=== PATIENT | female | born 1975 | race Caucasian/White ===

== ENCOUNTER 2018-04-05 01:26 | Inpatient (IN) ==
--- NOTE | 2018-04-05 02:51 | ED ---
HPI General Chief Complaint: Psychiatric Symptoms Stated Complaint: psych eval/transfer Time Seen by Provider: 04/05/18 01:46 Source: patient Mode of arrival: ambulatory Limitations: no limitations History of Present Illness HPI Narrative: This is a 43-year-old white female who is a transfer from [facility] under a Phillips act. The patient had been in the ER for nearly 3 days before being transferred here to [place]. Patient was concerned that her Phillips act would be lifted and that she would be discharged. Patient states that she still feels suicidal and does not feel comfortable going home. Patient reportedly had just moved to the area from [place]. Patient states that she just ran out of her Suboxone. She had taken her last dose prior to going to the ER. She has a history of substance abuse after having a head injury as a child and allegedly had been on oxycodone 80 mg twice daily for chronic headaches. Patient reportedly now has been off drugs for several years. She had been using heroin in the past. Past medical history: Hepatitis C, TBI, substance abuse and depression. History of prior psychiatric admissions and suicide attempts in the past. Past surgical history: Right wrist fracture with ORIF, tonsillectomy, tubal ligation, Social history: Related Data Home Medications Medication Instructions Recorded Confirmed buprenorphine HCl 8 mg SUBLINGUAL BID PRN 04/05/18 04/05/18 clonazepam 0.5 mg PO TID PRN 04/05/18 04/05/18 sertraline [Zoloft] 50 mg PO DAILY 04/05/18 04/05/18 Allergies Allergy/AdvReac Type Severity Reaction Status Date / Time epinephrine Allergy Unknown Anxiety Verified 04/05/18 01:45 Review of Systems ROS: all other systems reviewed are negative PMFSH History History Provided By: Patient and Medical Record Medical History Medical History Depression (Acute) Traumatic brain injury (Acute) Social History Social History Substance History: Past History Smoking Status: Current every day smoker Tobacco Type: Cigarettes How Often Do You Have a Drink Containing Alcohol: Monthly or less Recent Travel in [facility] within the Last 8 Weeks: No Recent Out of Country Travel within the Last 8 Weeks: No Course Initial Documented Vital Signs Temperature 98.3 F 04/05/18 01:53 Pulse Rate 97 H 04/05/18 01:53 Respiratory Rate 16 04/05/18 01:53 Blood Pressure 147/91 H 04/05/18 01:53 Pulse Oximetry 97 04/05/18 01:53 Last Documented Vital Signs Temperature 98.3 F 04/05/18 01:53 Pulse Rate 97 H 04/05/18 01:53 Respiratory Rate 16 04/05/18 01:53 Blood Pressure 147/91 H 04/05/18 01:53 Pulse Oximetry 97 04/05/18 01:53 Medical Decision Making MDM Narrative Medical decision making narrative: I reviewed the patient's medical record. The patient has been medically cleared by [facility]. Medical Screen Exam Complete: Yes Emergency Medical Condition: Yes Differential Diagnosis Differential Diagnosis: MDM: High Differential diagnoses: Schizophrenia, schizoaffective disorder, bipolar, anxiety, depression, adjustment reaction, mood disorder NOS, ODD, depressive disorder NOS, dementia, dementia with agitation, psychosis NOS, substance induced mood disorder , infection,electrolyte abnormality, malingering. Mental health screening discussed with the patient. Psychiatric screen ordered. Discharge Plan Discharge Disposition Patient Disposition: 30 Still Patient Discharge Condition Condition: Stable Physicians Team ED Provider: Yue Esposito ED Midlevel Provider: Elton Johns Primary Care Provider: Primary Care Shiloh Jacques Rxs /Orders / Referrals /Forms Prescriptions: No Action clonazepam 0.5 mg Tablet 0.5 mg PO TID PRN (Reason: Anxiety) RF: 0 buprenorphine HCl 8 mg Tablet, Sublingual 8 mg Sublingual BID PRN (Reason: Pain, Severe) RF: 0 sertraline [Zoloft] 50 mg Tablet 50 mg PO DAILY RF: 0 Status ED Status: Medically Cleared
[2018-04-05] MEDS ORDERED: Aluminum/Magnesium/Simethacone Susp 30 ML UDC PO PRN (16:55)
[2018-04-05] MEDS ORDERED: Melatonin 5 MG Tablet PO PRN (16:55)
[2018-04-05] MEDS ORDERED: LORazepam 1 MG Tablet PO PRN (16:57)
[2018-04-05] MEDS ORDERED: Haloperidol Inj 5 MG/ML Ampul IV.PUSH PRN (16:57)
[2018-04-06] MEDS: Senna/Docusate Sodium 8.6/50 MG Tablet PO SCH ×3 (01:20→20:15)
[2018-04-06] MEDS: Multivitamin/Minerals Therapeutic Tablet PO SCH (08:31)
[2018-04-06] MEDS: Folic Acid 1 MG Tablet PO SCH (08:31)
[2018-04-06 08:35] LABS: Baso # (Auto) 0.1 th/mm3 (0.0-0.2); Baso % (Auto) 1.1 % (0.0-2.0); Eos # (Auto) 0.1 th/mm3 (0.0-0.4); Eos % (Auto) 2.2 % (0.0-4.0); Hematocrit 40.6 % (35.0-46.0); Hemoglobin 13.3 gm/dL (11.6-15.3); Lymph # (Auto) 1.8 th/mm3 (1.0-4.8); Lymph % (Auto) 27.6 % (9.0-44.0); Mean Corpuscular HGB Conc 32.8 % (32.0-36.0); Mean Corpuscular Hemoglobin 26.7 pg (27.0-34.0); Mean Corpuscular Volume 81.3 fL (80.0-100.0); Mean Platelet Volume 7.1 fL (7.0-11.0); Mono # (Auto) 0.5 th/mm3 (0.0-0.9); Mono % (Auto) 6.9 % (0.0-8.0); Neut # (Auto) 4.1 th/mm3 (1.8-7.7); Neut % (Auto) 62.2 % (16.0-70.0); Platelet Count 253 th/mm3 (150-450); Red Cell Distribution Width 17.5 % (11.6-17.2); White Blood Count 6.6 th/mm3 (4.0-11.0)
[2018-04-06 09:05] LABS: Albumin 3.7 g/dL (3.4-5.0); Anion Gap 11 meq/L (5-15); Aspartate Aminotransferase 70 U/L (15-37); Blood Urea Nitrogen 14 mg/dL (7-18); Calcium 8.6 mg/dL (8.5-10.1); Carbon Dioxide 22.7 meq/L (21.0-32.0); Chloride 103 meq/L (98-107); Glomerular Filtration Rate 74 mL/min (>89); Glucose,Random 185 mg/dL (74-106); Potassium 4.1 meq/L (3.5-5.1); Sodium 137 meq/L (136-145)
[2018-04-06 09:07] LABS: Alanine Aminotransferase 73 U/L (10-53); Cholesterol 216 mg/dL (120-200); Triglycerides 99 mg/dL (42-150)
[2018-04-06 09:31] LABS: Alkaline Phosphatase 82 U/L (45-117); Chol/HDL Ratio 3.08 Ratio; HDL Cholesterol 70.1 mg/dL (40.0-60.0); LDL Cholesterol,Calculated 126 mg/dL (0-99); Total Protein 7.8 g/dL (6.4-8.2)
[2018-04-06 09:41] LABS: Hemoglobin A1c 5.4 % (4.3-6.0)
[2018-04-06] MEDS ORDERED: Loperamide 2 MG Capsule PO PRN (10:27)
[2018-04-06] MEDS: Sertraline 100 MG Tablet PO SCH (10:52)
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
[2018-04-06] MEDS: Baclofen 10 MG Tablet PO SCH ×2 (12:38→17:01)
[2018-04-07] MEDS: Baclofen 10 MG Tablet PO SCH (08:42)
[2018-04-07] MEDS: Sertraline 100 MG Tablet PO SCH (08:42)
[2018-04-07] MEDS: Folic Acid 1 MG Tablet PO SCH (08:46)
[2018-04-07] MEDS: Multivitamin/Minerals Therapeutic Tablet PO SCH (08:46)
[2018-04-07] MEDS: Senna/Docusate Sodium 8.6/50 MG Tablet PO SCH ×2 (08:46→20:35)
--- NOTE | 2018-04-07 10:48 | P.PNPSY ---
Subjective Remarks: Patient seen and examined with nurse. Chart reviewed. Case discussed with nursing staff. No behavioral issues noted overnight. CIWA score is reportedly minimal. On my examination today, patient reports that she slept well overnight. Mood is reportedly "pretty good." The patient does continue to endorse suicidal ideation as before but has no reported urge to hurt self on the inpatient unit. No homicidal ideation. No psychotic material. Denies side effects from medications. Complains of feeling "shaky, achy, sweaty" in the setting of reported opiate withdrawal. Agreeable to titration of baclofen for management of withdrawal symptoms. No other physical complaints. Vital Signs Temp Pulse Resp BP Pulse Ox 04/07/18 06:00 98.2 F 79 134/94 H 04/06/18 17:35 98.7 F 84 17 124/85 04/06/18 14:00 98.3 F 85 17 108/55 L 95 Intake and Output 04/06/18 04/07/18 04/07/18 22:59 06:59 14:59 Other: Weight 52.2 kg Laboratory Results - last 24 hr 04/06/18 08:12 Free T4 1.12 Labs reviewed. Free T4 within normal limits. Review of Systems All other systems reviewed negative except as stated in HPI Mental Status Examination Appearance: Appropriate Consciousness: Alert Orientation: x4 Motor Activity: Other (No motor abnormalities noted.) Speech: Unremarkable Language: Adequate Fund of Knowledge: Adequate Attention and Concentration: Adequate Memory: Unremarkable (Grossly intact on clinical exam) Mood: Other ("Pretty good") Affect: Blunt Thought Process & Associations: Intact, Logical, Linear Thought Content: Appropriate Hallucination Type: None Delusion Type: None Suicidal Ideation: Yes Suicidal Plan: Yes (Walk into traffic) Suicidal Intention: No (No reported urge to hurt self on an inpatient unit) Homicidal Ideation: No Homicidal Plan: No Homicidal Intention: No Insight: Fair Judgment: Impulsive Assessment and Plan - Assessment (1) Adjustment disorder with mixed disturbance of emotions and conduct Code(s): F43.25 - Adjustment disorder with mixed disturbance of emotions and conduct Status: Acute (2) Polysubstance abuse Code(s): F19.10 - Other psychoactive substance abuse, uncomplicated Status: Acute - Plan Plan: Titrate baclofen to 20 mg 3 times daily for management of reported withdrawal symptoms. Continue Zoloft as ordered. Continue to monitor on the inpatient unit. Continue other medications and care as ordered. Justification for Continued Inpatient Stay: Monitoring for impairment in safety. Discharge Planning: Pending psychiatric stabilization Request Healthcare Surrogate/Guardian Advocate?: No
[2018-04-07] MEDS ORDERED: Baclofen 10 MG Tablet PO ONE (11:00)
[2018-04-08] MEDS: Senna/Docusate Sodium 8.6/50 MG Tablet PO SCH ×2 (08:14→20:55)
[2018-04-08] MEDS: Multivitamin/Minerals Therapeutic Tablet PO SCH (08:14)
[2018-04-08] MEDS: Sertraline 100 MG Tablet PO SCH (08:14)
[2018-04-08] MEDS: Folic Acid 1 MG Tablet PO SCH (08:14)
--- NOTE | 2018-04-08 10:01 | P.TTN ---
- Patient Problems Problems: 1. Discharge planning 2. Medication compliance 3. Knowledge deficit 4. Lack of coping skills - Progress Toward Goals Provider Present: Dr. Mary Ruano (Dr. Ruano is titrating medications, patient needs to remain for further stabilization.) Psychiatric Counselors Present: Santi Villanueva Jr., [facility] (Counselor will meet with the patient today to discuss a safe discharge plan.) Group Spec/RT/OT/FERNANDEZ Present: DEYSI De La Cruz (Patient attends select groups.) - Documentation Teaching Recipient: Patient
--- NOTE | 2018-04-08 11:16 | P.PNPSY ---
Subjective Remarks: Patient seen and examined with nurse. Chart reviewed. Case discussed with nursing staff who reports patient had a fine day yesterday but then became upset when evening staff tried to take away her hoodie. Case discussed in treatment team. On my examination today, the patient says that she is feeling "emotional." She reports that she is doing well from an opiate withdrawal standpoint. She denies SI. She notes that Lamictal has been very helpful in the past for mood stabilization, and she thinks that the only reason she came off of this agent was because she went to prison and was off of it long enough to require re-titration, and so a different agent was selected instead. Denies side effects from medications. No physical complaints. Vital Signs Temp Pulse Resp BP Pulse Ox 04/08/18 10:00 98.2 F 91 H 18 123/74 98 04/08/18 04:00 98.1 F 69 18 143/87 H 100 04/08/18 00:00 98.6 F 72 20 120/74 99 04/07/18 20:00 98.6 F 72 18 118/84 99 04/07/18 17:48 98.6 F 89 18 147/87 H 98 04/07/18 14:40 98.6 F 79 16 117/84 99 Labs reviewed. No new labs. Review of Systems All other systems reviewed negative except as stated in HPI Mental Status Examination Appearance: Appropriate Consciousness: Alert Orientation: x4 Motor Activity: Other (No abnormal motor movements noted.) Speech: Unremarkable Language: Adequate Fund of Knowledge: Adequate Attention and Concentration: Adequate Memory: Unremarkable (Grossly intact on clinical exam) Mood: Other (Improving) Affect: Blunt Thought Process & Associations: Intact, Logical, Linear Thought Content: Appropriate Hallucination Type: None Delusion Type: None Suicidal Ideation: No Suicidal Plan: No Suicidal Intention: No Homicidal Ideation: No Homicidal Plan: No Homicidal Intention: No Insight: Fair Judgment: Impulsive Assessment and Plan - Assessment (1) Adjustment disorder with mixed disturbance of emotions and conduct Code(s): F43.25 - Adjustment disorder with mixed disturbance of emotions and conduct Status: Acute (2) Polysubstance abuse Code(s): F19.10 - Other psychoactive substance abuse, uncomplicated Status: Acute - Plan Plan: Add Lamictal 25 mg at bedtime for mood stabilization. Continue Zoloft as ordered. Continue medications for management of opiate and GABAergic withdrawal , although we may consider tapering baclofen starting tomorrow. Continue to monitor on the inpatient unit. Patient will be transferred to lower acuity unit as her behavior and level of function are more appropriate for that unit. Continue other care as ordered. Justification for Continued Inpatient Stay: Medication changes. Risk for decompensation and less restrictive environment. Discharge Planning: Pending psychiatric stabilization. Request Healthcare Surrogate/Guardian Advocate?: No
[2018-04-08] MEDS: lamoTRIgine 25 MG TABLET PO SCH (20:54)
[2018-04-09] MEDS: Senna/Docusate Sodium 8.6/50 MG Tablet PO SCH ×2 (08:55→21:44)
[2018-04-09] MEDS: Sertraline 100 MG Tablet PO SCH (08:55)
[2018-04-09] MEDS: Multivitamin/Minerals Therapeutic Tablet PO SCH (08:55)
[2018-04-09] MEDS: Folic Acid 1 MG Tablet PO SCH (08:55)
--- NOTE | 2018-04-09 11:24 | P.PNPSY ---
Subjective Remarks: Patient seen and examined with nurse. Chart reviewed. Case discussed with nursing staff who reports patient slept fairly well and has been denying suicidal ideation or audiovisual hallucinations. On my examination today, the patient reports that her mood is improving. She is more hopeful and optimistic about the future. She says that she has spoken with her mother and is now contemplating returning to [place] where she has access to more services including a Suboxone provider. She denies side effects from medications. No withdrawal symptoms, and the patient notes that she is "pleasantly surprised" with how well she feels from a withdrawal standpoint. No physical complaints. Vital Signs Temp Pulse Resp BP Pulse Ox 04/09/18 05:34 98.5 F 66 17 141/87 H 96 04/08/18 16:00 98.6 F 74 16 120/81 98 Intake and Output 04/08/18 04/09/18 04/09/18 22:59 06:59 14:59 Intake Total 360 / 360 Balance 360 / 360 Intake: Oral 360 / 360 Labs reviewed. No new labs. Review of Systems All other systems reviewed negative except as stated in HPI Mental Status Examination Appearance: Appropriate Consciousness: Alert Orientation: x4 Motor Activity: Normal gait, Other (No motoric abnormalities noted. No objective signs of opiate withdrawal noted.) Speech: Unremarkable Language: Adequate Fund of Knowledge: Adequate Attention and Concentration: Adequate Memory: Unremarkable (Grossly intact on clinical exam) Mood: Other (Mood continues to improve) Affect: Blunt (More full and reactive today) Thought Process & Associations: Intact, Logical, Linear Thought Content: Appropriate Hallucination Type: None Delusion Type: None Suicidal Ideation: No Homicidal Ideation: No Insight: Fair Judgment: Impulsive Mental Status Exam Remarks: No visible rash. Assessment and Plan - Assessment (1) Adjustment disorder with mixed disturbance of emotions and conduct Code(s): F43.25 - Adjustment disorder with mixed disturbance of emotions and conduct Status: Acute (2) Polysubstance abuse Code(s): F19.10 - Other psychoactive substance abuse, uncomplicated Status: Acute - Plan Plan: Taper baclofen to 10 mg 4 times a day with plans for further taper to discontinuation of his opiate withdrawal symptoms appear to be under good control. Continue Zoloft as ordered. Continue Lamictal as ordered. Patient appears to be tolerating addition of this medication well, and we discussed plan for slow titration. Continue to monitor on inpatient unit. Continue other care as ordered. Justification for Continued Inpatient Stay: Medication changes. High risk for decompensation and less restrictive environment. Discharge Planning: Possible plan for return to [place] with outpatient follow-up and chemical dependency services there. Case discussed with counselor who will continue to work with patient on discharge planning. Request Healthcare Surrogate/Guardian Advocate?: No
[2018-04-09] MEDS: Acetaminophen 325 MG Tablet PO PRN ×3 (15:33→21:07)
[2018-04-09] MEDS: lamoTRIgine 25 MG TABLET PO SCH (21:06)
[2018-04-10] MEDS: Multivitamin/Minerals Therapeutic Tablet PO SCH (08:38)
[2018-04-10] MEDS: Senna/Docusate Sodium 8.6/50 MG Tablet PO SCH (08:40)
[2018-04-10] MEDS: Folic Acid 1 MG Tablet PO SCH (08:40)
[2018-04-10] MEDS: Sertraline 100 MG Tablet PO SCH (08:40)
--- NOTE | 2018-04-10 10:04 | P.PNPSY ---
Subjective Remarks: Patient seen and examined with nurse. Chart reviewed. Case discussed with nursing staff. No behavioral issues noted. Case discussed with counselor, who is assisting patient with discharge planning. On my exam today, patient complains of some interval worsening of opioid withdrawal symptoms with tapering of Baclofen. She complains of frequent yawning and sweating. No diarrhea or nausea/vomiting reported. Mood is improved versus admission. No SI. No side effects from medications. No other physical complaints. Vital Signs Temp Pulse Resp BP Pulse Ox 04/10/18 05:47 98.1 F 69 16 136/86 99 04/09/18 22:07 16 04/09/18 17:21 98.6 F 82 15 126/82 97 Labs reviewed. Review of Systems All other systems reviewed negative except as stated in HPI Mental Status Examination Appearance: Appropriate Consciousness: Alert Orientation: x4 Motor Activity: Normal gait, Other (No abnormal motor movements noted. No lacrimation, no rhinorrhea, no evident piloerection, no other signs of opioid withdrawal.) Speech: Unremarkable Language: Adequate Fund of Knowledge: Adequate Attention and Concentration: Adequate Memory: Unremarkable (Grossly intact on clinical exam) Mood: Appropriate Affect: Appropriate Thought Process & Associations: Intact, Logical, Linear Thought Content: Appropriate Hallucination Type: None Delusion Type: None Suicidal Ideation: No Homicidal Ideation: No Insight: Adequate Judgment: Adequate Mental Status Exam Remarks: Again no visible rash. Assessment and Plan - Assessment (1) Adjustment disorder with mixed disturbance of emotions and conduct Code(s): F43.25 - Adjustment disorder with mixed disturbance of emotions and conduct Status: Acute (2) Polysubstance abuse Code(s): F19.10 - Other psychoactive substance abuse, uncomplicated Status: Acute - Plan Plan: Continue baclofen as ordered for now. Continue Zoloft and Lamictal as ordered. Continue other medications and care as ordered. Continue to monitor on the inpatient unit. Justification for Continued Inpatient Stay: Risk for decompensation in less restrictive environment. Discharge planning. Discharge Planning: Possible discharge next 1-2 days. Case discussed with counselor. Request Healthcare Surrogate/Guardian Advocate?: No
[2018-04-10] MEDS: lamoTRIgine 25 MG TABLET PO SCH (20:48)
[2018-04-11] MEDS: Senna/Docusate Sodium 8.6/50 MG Tablet PO SCH ×3 (01:57→20:50)
[2018-04-11] MEDS: Sertraline 100 MG Tablet PO SCH (08:38)
--- NOTE | 2018-04-11 12:07 | P.DSPSY ---
Psychiatry Discharge Summary Inpatient Psychiatric care?: Yes Advance Directives: No Mental Health Advance Directive: No Health Care Proxy: No - Admission Admission Date: April 05, 2018 17:04 - Admission Diagnosis (1) Adjustment disorder with mixed disturbance of emotions and conduct Code(s): F43.25 - Adjustment disorder with mixed disturbance of emotions and conduct (2) Polysubstance abuse Code(s): F19.10 - Other psychoactive substance abuse, uncomplicated Brief History: Ms. Vivas is a 43-year-old female with a reported history of bipolar disorder and PTSD, who presents in transfer from [facility] under a Phillips Act. Phillips Act alleges that the patient has been having increased depression with suicidal ideations and has a past history of self-harm. I note that the patient was seen both by the psychiatric screener and also in consultation by Dr. [place] at [facility]. Reviewing our electronic medical record, I see no previous psychiatric contact within our system. The patient seen and examined with nurse. Chart reviewed. Case discussed with nursing staff. On my examination today, the patient is calm, but somewhat tearful. She has extremely prominent borderline personality traits. She says that she ran out of her medication over a week ago and has been feeling increasingly poorly since then. She says that the proximate stressor that led to her presenting to outside hospital was "a huge fight with my boyfriend's stepmother." The patient says that she threatened stepmother, but had no actual intent to harm stepmother. She does not describe any homicidal or violent ideation at this time. She does endorse suicidal ideation with plan to cut herself or walk into traffic, although she does contract for safety on the inpatient unit. She endorses ongoing low mood and anxiety, especially prominent over the last 4-5 days. She also endorses nightmares, disrupted sleep and hyperarousal. She denies any audiovisual hallucinations. No delusional material. Remainder of the psychiatric ROS is negative. No acute physical complaints. Tobacco Use In Past 30 Days: Yes How Often Do You Have a Drink Containing Alcohol: Monthly or less Hospital Course: Patient was admitted to a locked, inpatient psychiatric unit. Appropriate precautions were in place throughout patient's hospital stay. Patient was seen and examined on the unit by psychiatry and also visited by counselor. Psychotropic medications were adjusted. Patient tolerated medication changes well without side effects. Patient's opiate withdrawal was managed symptomatically to good effect. There was no evidence of any suicidality or homicidality on the inpatient unit. There was no evidence of self-care deficit. Working with the patient, counselor has arranged for patient to return to [place], where her primary support system and outpatient providers are located. Patient will depart tomorrow, Saturday, in the predawn hours for [place]. On my examination today, 04/11: Patient seen and examined with nurse. Chart reviewed. Case discussed with nursing staff. No behavioral issues noted overnight. Case discussed in treatment team. Patient noted to be attending groups, and behavior is appropriate in groups. On my evaluation today, patient feels ready to leave the inpatient unit. She tells me that she is excited to return to [place]. She denies any suicidal or homicidal ideation, intent or plan. I can elicit no depressive or hypomanic/manic symptoms. She denies any audiovisual hallucinations. I can elicit no delusional material. She denies any side effects from medications. We have discussed tapering Baclofen on an outpatient basis. We have discussed plan for titration of Lamictal on outpatient basis towards therapeutic dose. No physical complaints. Suicide and violence risk assessment on day of discharge both suggest lower imminent risk from mental illness and the patient's level of function is adequate for outpatient care. Patient has maximized benefit from this inpatient psychiatric hospital stay. She will be discharged today with psychiatric follow-up as arranged by counselor. Patient is also to follow-up with primary care. I have supported the patient in her desire for abstinence from substances of abuse; patient plans to resume Suboxone with a provider in [place]. I have counseled the patient regarding warning signs for need to return to the psychiatric emergency room as part of a general safety plan. - Discharge Discharge Date: 04/12/18 - Discharge Diagnosis (1) Adjustment disorder with mixed disturbance of emotions and conduct Diagnosis: Principal (Resolved) Code(s): F43.25 - Adjustment disorder with mixed disturbance of emotions and conduct Status: Acute (2) Polysubstance abuse Diagnosis: Secondary (Counseled to quit) Code(s): F19.10 - Other psychoactive substance abuse, uncomplicated Status: Acute Discharge Disposition: Home - Discharge Instructions Discharge Diet: Regular Diet Activities You Can Perform: Weight Bearing As Tolerat - Discharge Time <= 30 minutes Mental Status Examination Appearance: Appropriate Consciousness: Alert Orientation: x4 Motor Activity: Normal gait, Other (No motor abnormalities noted. No signs of withdrawal noted. No visible rash.) Speech: Unremarkable Language: Adequate Fund of Knowledge: Adequate Attention and Concentration: Adequate Memory: Unremarkable (Intact on clinical exam) Mood: Appropriate Affect: Appropriate, Euthymic Thought Process & Associations: Intact, Logical, Goal directed, Linear Thought Content: Appropriate Hallucination Type: None Delusion Type: None Suicidal Ideation: No Suicidal Plan: No Suicidal Intention: No Homicidal Ideation: No Homicidal Plan: No Homicidal Intention: No Insight: Adequate Judgment: Adequate Discharge/Advance Care Plan - Results Vital Signs: Last Vital Signs Temp 97.9 F 04/11/18 05:19 Pulse 80 04/11/18 05:19 Resp 16 04/11/18 05:19 BP 129/84 04/11/18 05:19 Pulse Ox 98 04/11/18 05:19 Lab Results: Laboratory Results Hemoglobin A1c 5.4 % (4.3-6.0) 04/06/18 08:12 Triglycerides 99 mg/dL (42-150) 04/06/18 08:12 Cholesterol 216 mg/dL (120-200) H 04/06/18 08:12 LDL Cholesterol, Calc 126 mg/dL (0-99) H 04/06/18 08:12 HDL Cholesterol 70.1 mg/dL (40.0-60.0) H 04/06/18 08:12 TSH 0.140 uIU/mL (0.358-3.740) L 04/06/18 08:12 Free T4 1.12 ng/dL (0.76-1.46) 04/06/18 08:12 Summary of Procedures: None done Pending Results: None - Medications Number of antipsychotic medications at discharge: 0 - Discharge Care Plan Goals to Promote Your Health: * To prevent worsening of your condition and complications * To maintain your health at the optimal level Directions to Meet Your Goals: Take your medications as prescribed Follow your dietary instruction Follow activity as directed Keep your appointments as scheduled Take your immunizations and boosters as scheduled If your symptoms worsen call your PCP, if no PCP go to Urgent Care Center or Emergency Room For 03/12 questions related to your inpatient stay or results of tests pending at discharge, please contact Dr. Faisal Ruano MD at [phone] Smoking is Dangerous to Your Health. Avoid second hand smoking
--- NOTE | 2018-04-11 16:45 | P.TTN ---
- Patient Problems Problems: 1. Discharge planning 2. Medication compliance 3. Knowledge deficit 4. Lack of coping skills - Progress Toward Goals Provider Present: Dr. Mary Ruano (Dr. Ruano is titrating medications, patient needs to remain for further stabilization.) Provider Input: 04/11/2018 Patient will be discharged tomorrow with a bus pass to [place]. She will be given medications and lunches. Has an appointment on Saturday04/15/2018 for medication management. Psychiatric Counselors Present: Santi Villanueva Jr., [facility] (Counselor will meet with the patient today to discuss a safe discharge plan.) Group Spec/RT/OT/FERNANDEZ Present: DEYSI De La Cruz (Patient attends select groups.) Group Spec/RT/OT/FERNANDEZ Input: 04/11/2018 Patient has been participating in therapy groups. - Documentation Teaching Recipient: Patient
[2018-04-11] MEDS: Acetaminophen 325 MG Tablet PO PRN (17:41)
[2018-04-11] MEDS: lamoTRIgine 25 MG TABLET PO SCH (20:49)
[2018-04-12 05:15] VITALS: BP 156/90; PULSE 90; RESP 16; TEMP 98.2; O2SAT 98
[2018-04-12] MEDS: Sertraline 100 MG Tablet PO SCH (05:35)
== END 2018-04-12 05:40 | disposition home or self-care (01) ==
LOC: NEPJ 01:26 → NEDA 17:04 → H270 18:32 → H260 04-08 12:09
PROVIDERS: ADMIT Psychiatry & Neurology Psychiatry; ATTEND Psychiatry & Neurology Psychiatry